=== PATIENT | male | born 1995 | race Caucasian/White ===

== ENCOUNTER 2020-10-27 15:09 | Inpatient (IN) | payer OTHER ==
[~2020-10-27] VITALS: Ht 177.8 cm; Wt 76.2 kg
[2020-10-27 15:13] VITALS: BP 147/85
[2020-10-27] MEDS ORDERED: ADDERALL XR 2020 MG PO (15:43)
[2020-10-27] MEDS ORDERED: ADDERALL 10 MG10 MG PO (15:44)
[2020-10-27 16:12] LABS: ABSOLUTE NEUTROPHILS 4.2 thou/uL (1.4-8.2); BASOPHILS 0.6 % (0.0-2.0); EOSINOPHILS 1.6 % (0.0-3.0); HEMATOCRIT 42.9 % (42.0-52.0); HEMOGLOBIN 14.7 gm/dL (14.0-18.0); LYMPHOCYTES 24.1 % (24.0-44.0); MCH 31.3 pg (26.0-34.0); MCHC 34.2 g/dL (28.0-37.0); MCV 91.3 fL (80.0-100.0); PLATELET COUNT 221 thou/uL (150-400); POLYS 65.7 % (36.0-66.0); RDW 13.2 % (10.5-14.5); WBC 6.4 thou/uL (4.0-11.0)
[2020-10-27 16:20] LABS: CALCIUM 8.7 mg/dL (8.5-10.1); CREATININE 0.9 mg/dL (0.7-1.3); POTASSIUM 3.7 mmol/L (3.5-5.1)
[2020-10-27 16:21] LABS: URINE BILIRUBIN NEGATIVE (Negative); URINE BLOOD NEGATIVE (Negative); URINE CLARITY CLEAR; URINE COLOR YELLOW; URINE GLUCOSE-RANDOM* NEGATIVE (Negative); URINE KETONES NEGATIVE (Negative); URINE LEUKOCYTES-REFLEX NEGATIVE (Negative); URINE NITRITE-REFLEX NEGATIVE (Negative); URINE PROTEIN (DIPSTICK) NEGATIVE (Negative); URINE SPECIFIC GRAVITY 1.015 (1.005-1.035); URINE UROBILINOGEN 0.2 E.U./dl (0.2-1.0)
[2020-10-27 16:26] LABS: ALBUMIN 4.2 g/dL (3.4-5.0); TOTAL BILIRUBIN 0.5 mg/dL (0.2-1.0); TOTAL PROTEIN 7.2 g/dL (6.4-8.2)
[2020-10-27 17:08] VITALS: BP 130/68
[2020-10-27 17:44] VITALS: BP 131/73
--- NOTE | 2020-10-27 19:50 | NUR ---
PT WAS BROUGHT IN FROM THE ER AT 1800 HOURS THIS EVENING. PT C/O PAIN IN THE RIGHT LOWER QUAD AT A DULL ACHE. ALSO C/O PAIN IN THE RIGHT AC LOCATION WHERE AN IV INFILTRATED. PT IS A/OX4, EYES PERRLA, LUNGS CLEAR BILAT, ABD SOFT NON TENDER IN ALL QUADS EXCEPT TENDER IN LOWER RIGHT. PT HAS CALL LIGHT AND OTHER NEEDS WITHIN REACH. IV IN LEFT FA. ASSESSMENT OTHERWISE UNREMARKABLE.
[2020-10-27 19:53] VITALS: BP 118/76
--- NOTE | 2020-10-28 01:05 | NUR ---
ASSESSED AT START OF SHIFT. PT A&OX4 UP AD GENE TO THE BATHROOM. DENIES PAIN, N/V ON ASSESSMENT. IV INTACT WITH FLUIDS INFUSING. PT NPO AT MIDNIGHT FOR SURGERY TOMORROW. FALL EDUCATION PROVIDED AND CALL LIGHT AT REACH WILL CONT TO MONITOR.
[2020-10-28 04:00] VITALS: BP 109/64
--- NOTE | 2020-10-28 07:18 | NUR ---
PT JUST PICKED UP FOR SURGERY.
[2020-10-28] MEDS ORDERED: ACETAMINOPHEN325 M1 PO (09:06)
[2020-10-28] MEDS ORDERED: COLACE 100 MG100 MG PO (09:06)
[2020-10-28] MEDS ORDERED: MIRALAX17 GM PO (09:06)
[2020-10-28] MEDS ORDERED: OXYCODONE HCL 55 MG PO (09:06)
[2020-10-28] MEDS ORDERED: IBUPROFEN 200200 M1 PO (09:06)
[2020-10-28 10:26] VITALS: BP 122/66
[2020-10-28 10:30] VITALS: BP 129/70
[2020-10-28 10:52] VITALS: BP 156/93
[2020-10-28 11:00] VITALS: BP 119/62
[2020-10-28 11:28] VITALS: BP 119/62
--- NOTE | 2020-10-28 13:23 | NUR ---
PT HAD LAP CHUCKY. PT IS INDEPENDENT WITH ALL ADLS. PT HAD ORDERS TO DISCHARGE HOME NO NEEDS FROM CM.
== END 2020-10-28 11:53 | disposition home or self-care (01) | DRG 343 ==
LOC: ER 15:09 → EROBS 17:13 → 4S 17:13
PROVIDERS: Emergency Medicine; ADMIT Surgery; ATTEND Surgery
PROC: 0DTJ4ZZ Resection of Appendix, Percutaneous Endoscopic Approach (ICD-10-PCS; principal; 2020-10-28)
DX: K35.80 Unspecified acute appendicitis (principal); Z20.822 Contact with and (suspected) exposure to COVID-19; Z79.899 Other long term (current) drug therapy; Z72.89 Other problems related to lifestyle
CPT/HCPCS: 10195; 50010; 50101; 50411; 50558; 50739; 50740; 52265; 53307; 53310; 53312; 54022; 54118; 56525; 56526; 58574; 62110; 62900; 70005

== ENCOUNTER → 2020-10-27 | Outpatient (CLI) | payer OTHER ==
[~2020-10-27] MED LIST: ACETAMINOPHEN325 M1 PO; ADDERALL 10 MG10 MG PO; ADDERALL XR 2020 MG PO; COLACE 100 MG100 MG PO; IBUPROFEN 200200 M1 PO; MIRALAX17 GM PO; OXYCODONE HCL 55 MG PO
== END ==
LOC: CAT 09:37
PROVIDERS: ATTEND Nurse Practitioner
DX: R10.31 Right lower quadrant pain (principal)